=== PATIENT | male | born 1950 | race Caucasian/White ===

== ENCOUNTER 2017-06-04 07:57 | Day surgery (SDC) | payer MEDICARE, BC ==
[~2017-06-04 07:57] MED LIST: Lactated Ringers 1,000 ML IV SCH; Lidocaine 1%/Sod Bicarbonate in NS 8.4% 1 ML Syringe PRN; Sodium Chloride 0.9% 10 ML Syringe FLUSH PRN
--- NOTE | 2017-06-04 08:32 | PCM.PREANE ---
Preanesthetic Assessment - Procedure Proposed Procedure: Diagnostic colonoscopy - Anesthesia/Transfusion/Family Hx Anesthesia History: Prior Anesthesia Without Reaction Family History of Anesthesia Reaction: No Transfusion History: No Prior Transfusion(s) Intubation History: Unknown - Review of Systems General: No Symptoms Pulmonary: No Symptoms Cardiovascular: No Symptoms Gastrointestinal: No Symptoms Neurological: No Symptoms Other: Reports: None - Physical Assessment NPO Status Date: 06/03/17 NPO Status Time: 22:00 Pulse: 82 O2 Sat by Pulse Oximetry: 93 Respiratory Rate: 16 Blood Pressure: 140/81 Temperature: 36.2 C Height: 1.85 m Weight: 106.141 kg ASA Class: 2 Mental Status: Alert & Oriented x3 Airway Class: Mallampati = 2 Dentition: Reports: Normal Dentition Thyro-Mental Finger Breadths: 3 Mouth Opening Finger Breadths: 3 ROM/Head Extension: Full Lungs: Clear to Auscultation, Normal Respiratory Effort Cardiovascular: Regular Rate, Regular Rhythm - Allergies Allergies/Adverse Reactions: Allergies Allergy/AdvReac Type Severity Reaction Status Date / Time No Known Allergies Allergy Verified 06/24/14 13:32 - Blood Blood Available: No Product(s) Available: None - Anesthesia Plan Pre-Op Medication Ordered: None - Acknowledgements Anesthesia Type Planned: MAC Pt an Appropriate Candidate for the Planned Anesthesia: Yes Alternatives and Risks of Anesthesia Discussed w Pt/Guardian: Yes Pt/Guardian Understands and Agrees with Anesthesia Plan: Yes PreAnesthesia Questionnaire Gastrointestinal History: Reports: Other (See Below) Other Gastrointestinal History: constipation - Past Surgical History HEENT Surgical History: Reports: Tonsillectomy GI Surgical History: Reports: Hernia Repair/Other, Other (See Below) Other GI Surgeries/Procedures: partial colectomy Musculoskeletal Surgical History: Reports: Other (See Below) Other Musculoskeletal Surgeries/Procedures:: right foot pain, toe surgery - SUBSTANCE USE Smoking Status *Q: Never Smoker Second Hand Smoke Exposure: No Days Per Week of Alcohol Use: 6 Number of Drinks Per Day: 2 Total Drinks Per Week: 12 Recreational Drug Use History: No - HOME MEDS Home Medications: Home Meds Multivitamin [Multivitamins] 1 cap PO DAILY 06/03/17 [History] - CURRENT (IN HOUSE) MEDS Current Meds: Current Medications Lactated Ringer's (Ringers, Lactated) 1,000 mls @ 125 mls/hr IV ASDIRECTED DAMARIS Stop: 06/04/17 23:00 Lidocaine/Sodium Bicarbonate (Buffered Lidocaine 1% In Ns 8.4%) 0.25 ml .XX ONETIME PRN PRN Reason: Prior to IV Start Stop: 06/04/17 18:00 Sodium Chloride (Saline Flush) 10 ml FLUSH ASDIRECTED PRN PRN Reason: Keep Vein Open Stop: 06/04/17 18:00
[2017-06-04] MEDS ORDERED: Propofol 200 MG/20 ML SDV ONE (09:20)
[2017-06-04] MEDS ORDERED: Midazolam 1 MG/ML 2 ML SDV ONE (09:21)
[2017-06-04] MEDS ORDERED: fentaNYL 100 MCG/2 ML SDV ONE (09:21)
[2017-06-04] MEDS ORDERED: Lidocaine 1% 4 ML ONE (09:23)
--- NOTE | 2017-06-04 09:55 | PCM.OPNOTE ---
- General Post-Op/Procedure Note Date of Surgery/Procedure: 06/04/17 Operative Procedure(s): Colonoscopy with random biopsies of the ascending, and descending colons, and rectum Findings: Endoscopic colitis ( loss of mucosal vascularity and diminished light reflex from the rectum to the ileal colonic anastomosis ) normal ileal colonic anastomosis Normal terminal ileum Mild prostate enlargement Pre Op Diagnosis: History of ulcerative colitis with change in bowel habits Post-Op Diagnosis: Same Anesthesia Technique: MAC, Moderate Sedation Primary Surgeon: Don Navarro Pathology: Biopsies of the ascending and descending colons and rectum EBL in mLs: 0 Complications: None Condition: Good Free Text/Narrative:: After adequate IV sedation and analgesia was obtained with monitoring the patient was placed on his left side. Perianal inspection and digital rectal examination were only remarkable for a slightly enlarged prostate without nodules. A lubricated colonoscope was inserted into the rectum and advanced under direct vision with air insufflation as necessary to the ileocolonic anastomosis. This was normal with no strictures. The terminal ileum was intubated and was endoscopically normal. The ascending colon transverse and descending colons were remarkable for diminished light reflex and loss of mucosal vascularity. There were no ulcers or pseudopolyps. Random biopsies were taken in the ascending colon and descending colons for histologic review. The sigmoid also had endoscopic features consistent with chronic mild colitis. The rectum also had endoscopic features consistent with chronic mild colitis. 2 random biopsies were taken here as well using cold forceps. There were no mass lesions throughout the entire examination. Photographs were taken for the patient and for the record. Air was removed as I finished the procedure which he tolerated well.
[2017-06-04 09:57] VITALS: BP 117/67
== END 2017-06-04 10:38 | disposition home or self-care (01) ==
LOC: JD.SDS 07:57
PROVIDERS: ATTEND Surgery
PROC: 0DBK8ZX Excision of Ascending Colon, Via Natural or Artificial Opening Endoscopic, Diagnostic (ICD-10-PCS; principal; 2017-06-04)
PROC: 0DBP8ZX Excision of Rectum, Via Natural or Artificial Opening Endoscopic, Diagnostic (ICD-10-PCS; 2017-06-04)
PROC: 0DBM8ZX Excision of Descending Colon, Via Natural or Artificial Opening Endoscopic, Diagnostic (ICD-10-PCS; 2017-06-04)
DX: K92.1 Melena (principal); K59.00 Constipation, unspecified; K62.5 Hemorrhage of anus and rectum; K43.9 Ventral hernia without obstruction or gangrene; K51.90 Ulcerative colitis, unspecified, without complications; Z98.0 Intestinal bypass and anastomosis status
CPT/HCPCS: 45380; 88305; J2250; J3010; J7120; 00810; J2704

== ENCOUNTER 2021-05-09 01:25 | Emergency (ER) | payer MEDICARE, BC ==
[2021-05-09 01:48] VITALS: BP 148/87; PULSE 65
[2021-05-09] MEDS ORDERED: Sodium Chloride 0.9% 10 ML Syringe FLUSH PRN (01:54)
[2021-05-09] MEDS ORDERED: Pantoprazole 40 MG Vial IVPUSH ONE (01:56)
[2021-05-09] MEDS ORDERED: Ondansetron 4 MG/2 ML SDV IVPUSH ONE (01:56)
[2021-05-09] MEDS ORDERED: Morphine 4 MG/ML Syringe IVPUSH ONE ×2 (01:57→03:11)
[2021-05-09] MEDS ORDERED: Sodium Chloride 0.9% 1,000 ML IV ONE (01:57)
--- NOTE | 2021-05-09 05:15 | EDM.PDOC ---
ED HPI GENERAL MEDICAL PROBLEM - General Chief Complaint: Abdominal Pain Stated Complaint: ABDOMINAL PAIN Time Seen by Provider: 05/09/21 01:47 Source of Information: Reports: Patient, Family History Limitations: Reports: No Limitations - History of Present Illness INITIAL COMMENTS - FREE TEXT/NARRATIVE: Patient is a 70-year-old male who is complaining of having severe epigastric abdominal pain started about 8 PM tonight. He denies eating any greasy or fatty foods tonight but is never had similar pain. He rates pain as severe in intensity originally was traveling to his back but now is just in the epigastrium. He denies any vomiting but is feeling slightly nauseous denies any diarrhea or bloody or tarry stools. He has had no dysuria or hematuria. Patient did take some ibuprofen which gave him some relief from his symptoms. He denies any fever or chills. He has had a hemicolectomy in the past and has his appendix also removed at that time. Onset: Today, Sudden Duration: Getting Worse Location: Reports: Abdomen Quality: Reports: Ache, Throbbing Severity: Moderate Improves with: Reports: None Worsens with: Reports: None Associated Symptoms: Reports: No Other Symptoms Treatments [employer]OD [employer] COORDINATOR: Reports: NSAIDS Middle Abdomen Pain Score (Numeric/FACES): 6 - Related Data Allergies Allergy/AdvReac Type Severity Reaction Status Date / Time No Known Allergies Allergy Verified 06/24/14 13:32 Home Meds: Home Meds Multivitamin [Multivitamins] 1 cap PO DAILY 06/03/17 [History] Past Medical History Gastrointestinal History: Reports: Other (See Below) Other Gastrointestinal History: constipation - Past Surgical History HEENT Surgical History: Reports: Tonsillectomy GI Surgical History: Reports: Appendectomy, Hernia Repair/Other, Other (See Below) Other GI Surgeries/Procedures: partial colectomy Musculoskeletal Surgical History: Reports: Other (See Below) Other Musculoskeletal Surgeries/Procedures:: right foot pain, toe surgery Social & Family History - Tobacco Use Tobacco Use Status *Q: Never Tobacco User - Caffeine Use Caffeine Use: Reports: Coffee - Recreational Drug Use Recreational Drug Use: No ED ROS GENERAL - Review of Systems Review Of Systems: Comprehensive ROS is negative, except as noted in HPI. ED EXAM, GI/ABD - Physical Exam Exam: See Below Exam Limited By: No Limitations General Appearance: Alert, Mild Distress Head: Normocephalic Neck: Normal Inspection, Supple Respiratory/Chest: No Respiratory Distress, Lungs Clear, Normal Breath Sounds Cardiovascular: Regular Rate, Rhythm, No JVD, No Murmur GI/Abdominal Exam: Normal Bowel Sounds, Soft, No Organomegaly, No Distention, Tender Back Exam: Normal Inspection, Full Range of Motion Extremities: Normal Inspection, No Pedal Edema Neurological: Alert, Oriented, Normal Cognition Psychiatric: Normal Affect Skin Exam: Warm, Dry, Normal Color Course - Vital Signs Text/Narrative:: Patient's lab work including white blood cell count LFTs and lipase were all normal. Patient was given IV fluid and required 2 doses of morphine with some IV Zofran to get comfortable. Patient's CAT scan showing mildly dilated gallbladder with cholelithiasis and no gross gallbladder wall thickening. No biliary ductal dilatation. She is comfortable at this time I am discharging him home recommend he follow-up with Dr. Lozada our surgeon and ED low-fat nonfat diet small meals only until then. I will give him a prescription for some Bolivar and some Zofran. He is instructed to return to ER if having any fever chills, vomiting or worsening abdominal pain. Last Recorded V/S: Last Vital Signs Temp 97.8 F 05/09/21 01:43 Pulse 65 05/09/21 01:43 Resp 20 05/09/21 01:43 BP 148/87 H 05/09/21 01:43 Pulse Ox 98 05/09/21 01:43 - Orders/Labs/Meds Orders: Active Orders 24 hr Category Date Time Status Peripheral IV Care [RC] . DIRECTED Care 05/09/21 01:56 Active Abdomen Pelvis w Cont [CT] Stat Exams 05/09/21 01:55 Taken Sodium Chloride 0.9% [Saline Flush] Med 05/09/21 01:54 Active 10 ml FLUSH ASDIRECTED PRN Peripheral IV Insertion Adult [OM.PC] Routine Oth 05/09/21 01:54 Ordered Medication Orders Sodium Chloride (Sodium Chloride 0.9% 10 Ml Syringe) 10 ml FLUSH ASDIRECTED PRN PRN Reason: Keep Vein Open Last Admin: 05/09/21 02:15 Dose: 10 ml Documented by: VYONNE Labs: Laboratory Tests 05/09/21 05/09/21 05/09/21 Range/Units 02:10 02:10 02:10 WBC 8.22 (4.23-9.07) K/mm3 RBC 4.66 (4.63-6.08) M/mm3 Hgb 15.3 (13.7-17.5) gm/dl Hct 45.1 (40.1-51.0) % MCV 96.8 H (79.0-92.2) fl MCH 32.8 H (25.7-32.2) pg MCHC 33.9 (32.2-35.5) g/dl RDW Std Deviation 45.5 H (35.1-43.9) fL Plt Count 215 (163-337) K/mm3 MPV 9.6 (9.4-12.3) fl Neutrophils % (Manual) 75 H (40-60) % Band Neutrophils % 5 (0-10) % Lymphocytes % (Manual) 8 L (20-40) % Atypical Lymphs % 0 % Monocytes % (Manual) 8 (2-10) % Eosinophils % (Manual) 4 (0.8-7.0) % Basophils % (Manual) 0 L (0.2-1.2) Platelet Estimate Adequate Plt Morphology Comment Normal Anisocytosis 1+ slight Macrocytosis 2+ moderate RBC Morph Comment Abnormal Sodium 141 (136-145) mEq/L Potassium 4.1 (3.5-5.1) mEq/L Chloride 105 (98-107) mEq/L Carbon Dioxide 23 (21-32) mEq/L Anion Gap 17.1 H (5-15) BUN 21 H (7-18) mg/dL Creatinine 1.2 (0.7-1.3) mg/dL Est Cr Clr Drug Dosing 63.81 mL/min Estimated GFR (MDRD) 60 (>60) mL/min BUN/Creatinine Ratio 17.5 (14-18) Glucose 123 H (70-99) mg/dL Lactic Acid 0.9 (0.4-2.0) mmol/L Calcium 8.5 (8.5-10.1) mg/dL Total Bilirubin 1.4 H (0.2-1.0) mg/dL AST 20 (15-37) U/L ALT 26 (16-63) U/L Alkaline Phosphatase 61 (46-116) U/L Total Protein 6.7 (6.4-8.2) g/dl Albumin 3.7 (3.4-5.0) g/dl Globulin 3.0 gm/dL Albumin/Globulin Ratio 1.2 (1-2) Lipase 95 (73-393) U/L Urine Color (Yellow) Urine Appearance (Clear) Urine pH (5.0-8.0) Ur Specific [place] (1.005-1.030) Urine Protein (Negative) Urine Glucose (UA) (Negative) Urine Ketones (Negative) Urine Occult Blood (Negative) Urine Nitrite (Negative) Urine Bilirubin (Negative) Urine Urobilinogen (0.2-1.0) Ur Leukocyte Esterase (Negative) 05/09/21 Range/Units 03:26 WBC (4.23-9.07) K/mm3 RBC (4.63-6.08) M/mm3 Hgb (13.7-17.5) gm/dl Hct (40.1-51.0) % MCV (79.0-92.2) fl MCH (25.7-32.2) pg MCHC (32.2-35.5) g/dl RDW Std Deviation (35.1-43.9) fL Plt Count (163-337) K/mm3 MPV (9.4-12.3) fl Neutrophils % (Manual) (40-60) % Band Neutrophils % (0-10) % Lymphocytes % (Manual) (20-40) % Atypical Lymphs % % Monocytes % (Manual) (2-10) % Eosinophils % (Manual) (0.8-7.0) % Basophils % (Manual) (0.2-1.2) Platelet Estimate Plt Morphology Comment Anisocytosis Macrocytosis RBC Morph Comment Sodium (136-145) mEq/L Potassium (3.5-5.1) mEq/L Chloride (98-107) mEq/L Carbon Dioxide (21-32) mEq/L Anion Gap (5-15) BUN (7-18) mg/dL Creatinine (0.7-1.3) mg/dL Est Cr Clr Drug Dosing mL/min Estimated GFR (MDRD) (>60) mL/min BUN/Creatinine Ratio (14-18) Glucose (70-99) mg/dL Lactic Acid (0.4-2.0) mmol/L Calcium (8.5-10.1) mg/dL Total Bilirubin (0.2-1.0) mg/dL AST (15-37) U/L ALT (16-63) U/L Alkaline Phosphatase (46-116) U/L Total Protein (6.4-8.2) g/dl Albumin (3.4-5.0) g/dl Globulin gm/dL Albumin/Globulin Ratio (1-2) Lipase (73-393) U/L Urine Color Yellow (Yellow) Urine Appearance Clear (Clear) Urine pH 6.5 (5.0-8.0) Ur Specific [place] 1.025 (1.005-1.030) Urine Protein Negative (Negative) Urine Glucose (UA) Negative (Negative) Urine Ketones 2+ H (Negative) Urine Occult Blood Trace-intact H (Negative) Urine Nitrite Negative (Negative) Urine Bilirubin Negative (Negative) Urine Urobilinogen 0.2 (0.2-1.0) Ur Leukocyte Esterase Negative (Negative) Meds: Medications Generic Name Dose Route Start Last Admin Trade Name Freq PRN Reason Stop Dose Admin Sodium Chloride 10 ml 05/09/21 01:54 05/09/21 02:15 Sodium Chloride 0.9% 10 Ml Syringe FLUSH 10 ml ASDIRECTED PRN Administration Keep Vein Open Discontinued Medications Generic Name Dose Route Start Last Admin Trade Name Freq PRN Reason Stop Dose Admin Sodium Chloride 1,000 mls @ 1,000 mls/hr 05/09/21 01:57 05/09/21 02:08 Normal Saline IV 05/09/21 02:56 1,000 mls/hr ONETIME ONE Administration Morphine Sulfate 4 mg 05/09/21 01:57 05/09/21 02:09 Morphine 4 Mg/Ml Syringe IVPUSH 05/09/21 01:58 4 mg ONETIME ONE Administration Morphine Sulfate 4 mg 05/09/21 03:11 05/09/21 03:22 Morphine 4 Mg/Ml Syringe IVPUSH 05/09/21 03:12 4 mg ONETIME ONE Administration Ondansetron HCl 4 mg 05/09/21 01:56 05/09/21 02:09 Ondansetron 4 Mg/2 Ml Sdv IVPUSH 05/09/21 01:57 4 mg ONETIME ONE Administration Pantoprazole Sodium 40 mg 05/09/21 01:56 05/09/21 02:09 Pantoprazole 40 Mg Vial IVPUSH 05/09/21 01:57 40 mg ONETIME ONE Administration Departure - Departure Time of Disposition: 05:16 Disposition: Home, Self-Care 01 Condition: Good Clinical Impression: Cholelithiasis - Discharge Information Instructions: Cholelithiasis, [id number], Gallbladder Eating Plan Referrals: Ale Sahu, NATALIE [Primary Care Provider] - Av Lozada MD [Physician] - Additional Instructions: Call Dr. Lozada today for further evaluation and possible cholecystectomy. Bolivar and Zofran as needed. Low-fat nonfat diet. Return to ER if having fever chills vomiting or worsening pain. Sepsis Event Note (ED) - Evaluation Sepsis Screening Result: No Definite Risk - Focused Exam Vital Signs: Vital Signs Temp Pulse Resp BP Pulse Ox 05/09/21 01:43 97.8 F 65 20 148/87 H 98 - My Orders Last 24 Hours: My Active Orders 05/09/21 01:54 Sodium Chloride 0.9% [Saline Flush] 10 ml FLUSH ASDIRECTED PRN Peripheral IV Insertion Adult [OM.PC] Routine 05/09/21 01:55 Abdomen Pelvis w Cont [CT] Stat 05/09/21 01:56 Peripheral IV Care [RC] . DIRECTED - Assessment/Plan Last 24 Hours: My Active Orders 05/09/21 01:54 Sodium Chloride 0.9% [Saline Flush] 10 ml FLUSH ASDIRECTED PRN Peripheral IV Insertion Adult [OM.PC] Routine 05/09/21 01:55 Abdomen Pelvis w Cont [CT] Stat 05/09/21 01:56 Peripheral IV Care [RC] . DIRECTED
--- NOTE | 2021-05-09 07:46 | CT ---
CT abdomen and pelvis Technique: Multiple axial sections were obtained from above the dome of the diaphragm inferiorly through the pubic symphysis. Intravenous and oral contrast was given. Reconstructed coronal and sagittal images were also obtained. Delayed images were obtained through the abdomen and pelvis. Comparison: No prior CT abdomen or pelvis study is available. Findings: Slight bibasilar atelectasis is noted. Cyst is noted within the liver measuring 2.9 cm in size. Liver shows no other discrete abnormality. Gallbladder is somewhat dilated and contains multiple gallstones. No gallbladder wall thickening is seen. Spleen size is normal. Adrenal glands show no nodule. Small hiatal hernia is seen with gastroesophageal reflux of contrast into the distal esophagus. There is a calcification being seen within the pancreatic head measuring about 9 mm. This is most likely benign. Pancreas is otherwise unremarkable in appearance. Abdominal aorta shows minimal atherosclerotic calcification without aneurysm. Kidneys show symmetric contrast enhancement. Left kidney shows a small cyst measuring 9 mm. Delayed images show contrast excretion from both kidneys into the ureters as well as bladder. Minimal abnormality is also noted off the cortex of the right kidney measuring about 5 mm most likely representing additional cyst. No retroperitoneal adenopathy or mesenteric abnormalities are seen. There is fecal material being seen within distal portions of the small bowel. No pelvic mass or adenopathy is noted. Prostate gland is mildly enlarged. Mild fat-containing bilateral inguinal hernias are present. Bone window settings were reviewed which show mild scattered degenerative change within the spine. No acute osseous abnormality is appreciated. Impression: 1. Mildly dilated gallbladder with gallstones. No gallbladder wall thickening is seen. 2. Other findings as noted above which are nonacute. 3. No acute abnormality is appreciated. Diagnostic code #2 I agree with preliminary report from [facility], finalized on 05/09/21, 5:54 AM CDT, code 1
== END 2021-05-09 05:39 | disposition home or self-care (01) ==
LOC: JD.ED 01:25
DX: K80.20 Calculus of gallbladder without cholecystitis without obstruction (principal)
CPT/HCPCS: 36415; 74177; 80053; 81003; 83605; 83690; 85007; 85027; 96374; 96375; 96376; 99284; C9113; J2270; J2405; J7030

== ENCOUNTER 2022-01-09 09:11 | Observation (INO) | payer MEDICARE, BC ==
[~2022-01-09 09:11] MED LIST changes: +Acetaminophen 325 MG Tab PO SCH; +Bupivacaine 0.5% 30 ML SDV ONE; +Gabapentin 300 MG Cap PO SCH; -Lactated Ringers 1,000 ML IV SCH; +Lidocaine 1% with EPINEPHrine 1:100,000 20 ML MDV ONE; -Lidocaine 1%/Sod Bicarbonate in NS 8.4% 1 ML Syringe PRN; -Sodium Chloride 0.9% 10 ML Syringe FLUSH PRN
[2022-01-09] MEDS: Lactated Ringers 1,000 ML IV SCH ×2 (09:15→16:08)
[2022-01-09] MEDS ORDERED: Ondansetron 4 MG/2 ML SDV ONE (09:56)
[2022-01-09] MEDS ORDERED: Lactated Ringers 1,000 ML ONE (09:56)
[2022-01-09] MEDS ORDERED: Rocuronium 50 MG/5 ML Vial ONE ×2 (09:56→12:12)
[2022-01-09] MEDS ORDERED: Propofol 200 MG/20 ML SDV ONE (09:56)
[2022-01-09] MEDS ORDERED: Lidocaine 1%/Sod Bicarbonate in NS 8.4% 1 ML Syringe IDERM PRN (09:57)
[2022-01-09] MEDS ORDERED: Midazolam 1 MG/ML 2 ML SDV ONE (09:57)
[2022-01-09] MEDS ORDERED: fentaNYL 250 MCG/5 ML SDV ONE (09:57)
[2022-01-09] MEDS ORDERED: Lidocaine 1% 4 ML ONE (09:58)
[2022-01-09] MEDS ORDERED: ceFAZolin 1 GM Vial ONE (10:00)
[2022-01-09] MEDS ORDERED: ePHEDrine 50 MG/ML SDV ONE (11:40)
[2022-01-09] MEDS ORDERED: Ondansetron 4 MG/2 ML SDV IVPUSH PRN ×2 (11:59→19:06)
[2022-01-09] MEDS ORDERED: HYDROmorphone 0.5 MG/0.5 ML Syringe IVPUSH PRN (11:59)
[2022-01-09] MEDS ORDERED: fentaNYL 100 MCG/2 ML SDV IVPUSH PRN (11:59)
[2022-01-09] MEDS ORDERED: Ketamine 500 mg/10 ML MDV ONE (13:06)
[2022-01-09] MEDS ORDERED: Bacitracin Oint 15 GM Tube ONE (14:10)
[2022-01-09] MEDS ORDERED: oxyCODONE 5 MG Tab PO PRN (15:05)
[2022-01-09] MEDS: Ibuprofen 600 MG Tab PO SCH ×2 (16:09→22:20)
[2022-01-09] MEDS: metroNIDAZOLE/Normal Saline 500 MG in Premix Bag 1 BAG IV SCH ×2 (17:06→23:47)
[2022-01-09] MEDS: Acetaminophen 325 MG Tab PO SCH ×2 (17:50→22:20)
[2022-01-09] MEDS: Heparin Sodium 5,000 Units/ML Vial SUBCUT SCH (17:51)
[2022-01-09] MEDS: ceFAZolin 2 GM in Sodium Chloride 0.9% 50 ML IV SCH (18:13)
[2022-01-09] MEDS ORDERED: Sodium Chloride 0.9% 10 ML Syringe FLUSH SCH (21:00)
[2022-01-10] MEDS: Heparin Sodium 5,000 Units/ML Vial SUBCUT SCH ×2 (01:05→09:29)
[2022-01-10] MEDS: Acetaminophen 325 MG Tab PO SCH ×4 (02:27→12:57)
[2022-01-10] MEDS: ceFAZolin 2 GM in Sodium Chloride 0.9% 50 ML IV SCH ×2 (02:28→10:40)
[2022-01-10] MEDS: Ibuprofen 600 MG Tab PO SCH ×2 (04:45→09:31)
[2022-01-10] MEDS ORDERED: Docusate Sodium 100 MG Cap PO SCH (09:00)
[2022-01-10] MEDS ORDERED: Fish Oil/Omega-3 Fatty Acids 1 Gm Cap PO SCH (09:00)
[2022-01-10] MEDS ORDERED: Tamsulosin 0.4 MG Cap.ER PO SCH (09:00)
[2022-01-10] MEDS ORDERED: Multivitamin Tab PO SCH (09:00)
[2022-01-10] MEDS ORDERED: Magnesium Oxide 400 MG Tab PO SCH (09:00)
[2022-01-10] MEDS ORDERED: Multivitamins with Minerals/Folic Acid/Lutein/Zeaxanth Tab PO SCH (09:00)
[2022-01-10] MEDS ORDERED: Saccharomyces Boulardii (Probiotic) 250 MG Cap PO SCH (09:00)
[2022-01-10] MEDS ORDERED: MESALAMINE 0.375 GM PO SCH (09:00)
[2022-01-10] MEDS: metroNIDAZOLE/Normal Saline 500 MG in Premix Bag 1 BAG IV SCH (09:26)
[2022-01-10 11:38] VITALS: BP 98/68; PULSE 67
== END 2022-01-10 15:17 | disposition home or self-care (01) ==
LOC: JD.SDS 09:11 → JD.MS 15:27
PROVIDERS: ADMIT Surgery; ATTEND Surgery
DX: K80.20 Calculus of gallbladder without cholecystitis without obstruction (principal); E78.00 Pure hypercholesterolemia, unspecified; Z90.49 Acquired absence of other specified parts of digestive tract; Z90.89 Acquired absence of other organs; Z98.890 Other specified postprocedural states; Z79.899 Other long term (current) drug therapy
CPT/HCPCS: 36415; 44021; 49329; 51701; 51798; 74018; 80053; 85025; 94761; A9270; G0378; J0690; J1644; J2250; J2370; J2405; J2704; J2710; J3010; J3490; J7120; 00840; 99100